=== PATIENT | female | born 1995 ===

== ENCOUNTER → 2017-05-23 | Outpatient (CLI) | payer BC, OTHER ==
[2017-06-02 15:13] LABS: Source ENDOCERV/CERV
== END | disposition home or self-care (01) ==
LOC: LAB 08:30
PROVIDERS: Nurse Practitioner
DX: Z01.419 Encounter for gynecological examination (general) (routine) without abnormal findings (principal)
CPT/HCPCS: G0145

== ENCOUNTER → 2023-07-18 | Outpatient (CLI) | payer OTHER ==
[2023-07-18 15:47] LABS: Source, Urine Clean Catch
[2023-07-18 17:43] LABS: Appearance, Urine Clear (Clear); Bilirubin, Urine Neg (Neg); Blood, Urine Neg (Neg); Color, Urine Yellow (P-Yellow); Glucose Qualitative, Urine Neg (Neg); Ketones, Urine Neg (Neg); Leukocyte Esterase, Urine Neg (Neg); Nitrite, Urine Neg (Neg); Protein, Urine Neg (Neg); Specific Gravity, Urine 1.015 (1.003-1.022); Urobilinogen, Urine NORM (Normal); pH, Urine 6.5 (5.0-8.0)
== END | disposition home or self-care (01) ==
LOC: LAB SHORT 15:46
PROVIDERS: Obstetrics & Gynecology
DX: R82.90 Unspecified abnormal findings in urine (principal)
CPT/HCPCS: 81003

== ENCOUNTER → 2023-10-31 | Outpatient (CLI) | payer OTHER | LOC: LAB SHORT 17:20 → LAB 17:20 | DX: O09.892 Supervision of other high risk pregnancies, second trimester (principal) | CPT/HCPCS: 87081; 87150 ==

== ENCOUNTER 2023-11-24 03:32 | Inpatient (IN) | payer OTHER ==
[2023-11-24] VITALS (43 sets, daily range): BP systolic 101–134; BP diastolic 52–80
[~2023-11-24] VITALS: Ht 154.9 cm; Wt 63.6 kg
[2023-11-24] MEDS ORDERED: Lactated Ringer's 1,000 ML IV ONE (03:55)
[2023-11-24] MEDS ORDERED: FentaNYL Citrate 50 MCG/ML 2 ML Injection IV PRN (04:05)
[2023-11-24] MEDS ORDERED: ePHEDrine Sulfate 50 MG/ML 1ML Injection XX PRN (04:10)
[2023-11-24] MEDS ORDERED: Lactated Ringer's 1,000 ML IV SCH ×3 (04:10→08:15)
[2023-11-24] MEDS ORDERED: Lactated Ringer's 1,000 ML IV PRN (04:10)
[2023-11-24] MEDS ORDERED: Bupivacaine HCl 2.5 MG/ML 10ML P/F Injection XX SCH (04:10)
[2023-11-24] MEDS ORDERED: Misoprostol 200 MCG Tab PR SCH (04:10)
[2023-11-24] MEDS ORDERED: Castor Oil 59.146 ML BTL TOP SCH (04:10)
[2023-11-24] MEDS ORDERED: Lidocaine HCl 1% 30 ML SDV XX SCH (04:10)
[2023-11-24] MEDS ORDERED: Methylergonovine Maleate 0.2MG / ML 1ML Amp IM SCH (04:10)
[2023-11-24] MEDS ORDERED: Oxytocin 10 Unit / ML Vial IM SCH (04:10)
[2023-11-24] MEDS ORDERED: OXYTOCIN/RINGER'S LACTATE 500 ML IV SCH ×2 (04:10→08:15)
[2023-11-24] MEDS ORDERED: FentaNYL 2mcg/ml-Bup 0.1% Epd 250 ML EPI PRN (04:10)
[2023-11-24] MEDS ORDERED: Bupivacaine 0.5% HCl 5 MG/ML 30MLVIAL XX SCH (04:10)
[2023-11-24] MEDS ORDERED: Ondansetron HCl 2 MG / ML 2ML Vial IV PRN ×2 (04:10→04:55)
[2023-11-24] MEDS ORDERED: PRENATAL ESSEN1 EAC1 PO (04:26)
[2023-11-24 04:33] LABS: BASOPHILS ABSOLUTE AUTO 0.04 K/mm3 (0.00-0.23); BASOPHILS PERCENT AUTO 0 % (0-2); EOSINOPHILS ABSOLUTE AUTO 0.06 K/mm3 (0.00-0.68); EOSINOPHILS PERCENT AUTO 0 % (0-6); Hematocrit 36.4 % (33.0-51.0); Hemoglobin 13.2 g/dL (11.5-16.0); IMMATURE GRAN ABSOLUTE AUTO 0.09 K/mm3 (0.00-0.10); IMMATURE GRAN PERCENT AUTO 1 % (0-1); LYMPHOCYTES ABSOLUTE AUTO 2.15 K/mm3 (0.84-5.20); LYMPHOCYTES PERCENT AUTO 13 % (21-46); MONOCYTES ABSOLUTE AUTO 0.85 K/mm3 (0.16-1.47); MONOCYTES PERCENT AUTO 5 % (4-13); Mean Corpuscular HGB Conc 36.3 g/dL (31.5-36.5); Mean Corpuscular Volume 91 fL (80-100); Mean Platelet Volume 10.5 fL (9.1-12.4); NEUTROPHILS ABSOLUTE AUTO 13.25 K/mm3 (1.96-9.15); NEUTROPHILS PERCENT AUTO 81 % (41-73); Platelet Count 198 K/mm3 (150-400); RDW Coefficient Variation 12.4 % (11.7-14.2); RDW Standard Deviation 41.2 fL (35.1-46.3); White Blood Cell Count 16.44 K/mm3 (4.00-11.30)
[2023-11-24] MEDS ORDERED: ePHEDrine Sulfate 50 MG/ML 1ML Injection IV PRN (04:50)
[2023-11-24] MEDS ORDERED: Naloxone HCl 0.4MG / ML 1ML Vial IV PRN (04:55)
[2023-11-24] MEDS ORDERED: DiphenhydrAMINE HCl 50 MG/ML 1ML Vial IV PRN (04:55)
[2023-11-24] MEDS ORDERED: Metoclopramide HCl 5MG / ML 2ML Vial IV PRN (04:55)
[2023-11-24] MEDS ORDERED: Ibuprofen 400 MG Tab PO PRN (08:10)
[2023-11-24] MEDS ORDERED: Docusate Sodium 100 MG Cap PO PRN (08:10)
[2023-11-24] MEDS ORDERED: Carboprost Tromethamine 250 MCG/ML 1ML Amp IM PRN (08:10)
[2023-11-24] MEDS ORDERED: Witch Hazel/Glycerin PADS TOP PRN (08:10)
[2023-11-24] MEDS ORDERED: Methylergonovine Maleate 0.2MG / ML 1ML Amp IM PRN (08:15)
[2023-11-24] MEDS ORDERED: Rho(D) Immune Globulin 300 MCG / SYR IM ONE ×2 (08:15→13:15)
[2023-11-24] MEDS ORDERED: Acetaminophen 500 MG Tab PO PRN (08:15)
[2023-11-24] MEDS ORDERED: Lanolin Cream TOP PRN (08:20)
[2023-11-24] MEDS ORDERED: Misoprostol 200 MCG Tab PR PRN (08:20)
[2023-11-24] MEDS ORDERED: Benzocaine Topical Anesthetic Spray 60GM TOP PRN (08:20)
[2023-11-24] MEDS ORDERED: Prenatal Vit/FE Fumarate/FA 1 Tab PO SCH (09:00)
[2023-11-24] MEDS ORDERED: Ketorolac Tromethamine 30mg Vial IV PRN (09:00)
[2023-11-24] MEDS ORDERED: Ketorolac Tromethamine 30mg Vial IV ONE (09:00)
--- NOTE | 2023-11-24 09:28 | NUR ---
Pt. is awake in bed and welcomes my visit. SPouse is at bedside holding their little girl. Facilitate a life review and the whirlwind that took place in the past 24 hrs. Facilitated discussions of gratitude, hope, and sienna. Some pastortal care is given. Prayed for the baby and the family. Both Pt. and spouse verbalized gratitude for the spiritual care visit and the blessing for the baby.
--- NOTE | 2023-11-24 10:34 | NUR ---
REPORT RECEIVED FROM GLORIA TEIXEIRA. PT IS RESTING IN BED, GIVEN VITAMIN AND STOOL SOFTENER. PT NOW GOING TO TRY TO NAP WHILE HER HOLDS THE BABY. CALL LIGHT AND BELONGINGS WITHIN REACH, PT DENIES FURTHER REQUESTS.
--- NOTE | 2023-11-24 12:15 | NUR ---
PT UP TO BATHROOM WITH SBA, PT ABLE TO VOID AND PROVIDE OWN PERICARE. BED LINENS AND GOWN CHANGED. PT NOW BACK TO BED, ATTEMPTING BREAST FEED.
--- NOTE | 2023-11-24 13:20 | NUR ---
PT FINISHED , DID 20 MINUTES ON RIGHT AND 15 MINUTES ON LEFT. RHOGAM GIVEN THROUGH PATENT IV AT THIS TIME. PT CONSIDERING SHOWER, STATES HER WILL ASSIST HER. DENIES FURTHER NEEDS, CALL LIGHT AND BELONGINGS WITHIN REACH.
--- NOTE | 2023-11-24 15:17 | NUR ---
PT HAS SHOWERED AND IS NOW VISITING WITH FAMILY. PT STATES SHE BREASTFED FOR ABOUT 10 MINUTES ON RIGHT SIDE AND IS NOW GETTING READY TO TRY ON THE LEFT. PT REPORTS MILD CRAMPING, BUT DENIES NEED FOR MEDICATION, PT IS AWARE THAT TORADOL IS AVAILABLE AGAIN. PT DENIES FURTHER REQUESTS, CALL LIGHT AND BELONGINGS WITHIN REACH.
--- NOTE | 2023-11-24 16:25 | NUR ---
PT REPORTS FEELING CRAMPY AFTER FINISHING , PRN TORADOL GIVEN. PT DENIES FURTHER REQUESTS.
[2023-11-25 04:11] VITALS: BP 124/65
[2023-11-25 07:39] VITALS: BP 127/82
[2023-11-25] MEDS ORDERED: DOCU100 PO (08:50)
[2023-11-25] MEDS ORDERED: IBUP800 PO (08:50)
== END 2023-11-25 10:25 | disposition home or self-care (01) | DRG 807 ==
LOC: OBS 03:32 → BC 03:39 → OBS 04:04 → BC 04:07
PROVIDERS: ADMIT Obstetrics & Gynecology
PROC: 10E0XZZ Delivery of Products of Conception, External Approach (ICD-10-PCS; principal; 2023-11-24)
PROC: 0KQM0ZZ Repair Perineum Muscle, Open Approach (ICD-10-PCS; 2023-11-24)
PROC: 3E0R3BZ Introduction of Anesthetic Agent into Spinal Canal, Percutaneous Approach (ICD-10-PCS; 2023-11-24)
PROC: 00HU33Z Insertion of Infusion Device into Spinal Canal, Percutaneous Approach (ICD-10-PCS; 2023-11-24)
DX: O70.1 Second degree perineal laceration during delivery (principal); Z37.0 Single live birth; Z3A.39 39 weeks gestation of pregnancy
CPT/HCPCS: 36415; 51702; 59025; 85025; 85460; 86850; 86870; 86900; 86901; A9270; J1885; J2791; J7120